=== PATIENT | male | born 1955 | race African-American/Black ===

== ENCOUNTER → 2019-09-26 | Outpatient (CLI) | payer MEDICARE, MEDICAID ==
[~2019-09-26] MED LIST: PROSOL IH
== END | disposition home or self-care (01) ==
LOC: LAB 11:28
PROVIDERS: ATTEND Specialist
DX: R05 Cough (principal); Z20.828 Contact with and (suspected) exposure to other viral communicable diseases
CPT/HCPCS: C9803; U0003

== ENCOUNTER 2019-09-28 10:25 | Day surgery (SDC) | payer MEDICARE, MEDICAID ==
[~2019-09-28 10:25] MED LIST changes: +HEPARIN SODIUM 1,000 UNIT/1ML VIAL IV ONE; +NICARDIPINE 100MCG/ML 10ML VIAL (CATH LAB) IV ONE; +NITROGLYCERIN 50MCG/ML 10ML VIAL (CATH LAB) IV ONE
[2019-09-28] MEDS ORDERED: LIDOCAINE HCL 1% 20ML VIAL (Pyxis) INJ ONE (12:03)
[2019-09-28] MEDS ORDERED: FENTANYL CITRATE/PF 50MCG/ML 2ML VIAL ONE (12:03)
[2019-09-28] MEDS ORDERED: IODIXANOL 320MG/ML 100 ML BOTTLE IV ONE (12:04)
[2019-09-28] MEDS ORDERED: MIDAZOLAM HCL 2 MG/2 ML VIAL ONE (12:04)
[2019-09-28] MEDS ORDERED: ACETAMINOPHEN 325MG TABLET PO PRN (13:45)
[2019-09-28] MEDS ORDERED: ATROPINE SULFATE 1MG/10ML SYR IV PRN (13:45)
[2019-09-28] MEDS ORDERED: ONDANSETRON HCL 4MG/2ML INJ IV PRN (13:45)
== END 2019-09-28 18:10 | disposition home or self-care (01) ==
LOC: CCL 10:25
PROVIDERS: ATTEND Specialist
DX: R07.9 Chest pain, unspecified (principal); I25.10 Atherosclerotic heart disease of native coronary artery without angina pectoris; R94.31 Abnormal electrocardiogram [ECG] [EKG]; J44.9 Chronic obstructive pulmonary disease, unspecified; E05.90 Thyrotoxicosis, unspecified without thyrotoxic crisis or storm; N40.0 Benign prostatic hyperplasia without lower urinary tract symptoms; I27.20 Pulmonary hypertension, unspecified; I48.0 Paroxysmal atrial fibrillation; I25.2 Old myocardial infarction; F17.210 Nicotine dependence, cigarettes, uncomplicated; Z79.899 Other long term (current) drug therapy; Z98.890 Other specified postprocedural states
CPT/HCPCS: 93458; C1769; C1893; J1644; J2250; J3010; J3490; Q9967